=== PATIENT | male | born 1960 | race Caucasian/White ===

== ENCOUNTER 2020-02-24 12:28 | Inpatient (IN) ==
[2020-02-24] MEDS ORDERED: ZOFRAN INJ 4 MG VIAL IVP PRN (12:41)
[2020-02-24 12:56] VITALS: BMI 23.8
[2020-02-24] MEDS ORDERED: NS 1000 ML 1,000 ML ONE ×2 (12:58→14:27)
[2020-02-24] MEDS ORDERED: NS 1000 ML 1,000 ML IV SCH ×2 (13:00→16:00)
[2020-02-24 13:05] LABS: BASOPHILS % (AUTO) 0.2 % (0.2-1.0); HEMOGLOBIN 13.5 g/dL (13.5-18.0); LYMPHOCYTES # (AUTO) 0.3 X10^3/uL (1.3-2.9); LYMPHOCYTES % (AUTO) 2.5 % (21.0-51.0); MEAN CORPUSCULAR HEMOGLOBIN 30.9 pg (27.0-34.0); MEAN CORPUSCULAR HGB CONC 33.6 g/dL (33.0-35.0); MEAN PLATELET VOLUME 9.3 fL (7.4-11.0); MONOCYTES # (AUTO) 0.7 x10^3/uL (0.3-0.8); MONOCYTES % (AUTO) 5.4 % (0.0-13.0); NEUTROPHILS # (AUTO) 11.1 x10^3/uL (2.2-4.8); NEUTROPHILS % (AUTO) 91.9 % (42.0-75.0); PLATELET COUNT 179 X10^3/uL (150.0-450.0); RED BLOOD COUNT 4.35 X10^6/uL (4.7-6.0); RED CELL DISTRIBUTION WIDTH 13.8 % (11.6-16.5); WHITE BLOOD COUNT 12.1 X10^3/uL (3.6-10.0)
[2020-02-24 13:07] LABS: ABG BASE EXCESS -5.6 mmol/L (-2.0-2.0)
[2020-02-24] MEDS ORDERED: NS 1000 ML 1,000 ML IV ONE (13:10)
--- NOTE | 2020-02-24 13:12 | DR.DIZZY ---
HPI Time seen Time Seen by Provider: 02/24/20 12:40 Context Stroke Symptoms: None PMH PMH Past Medical History: Hypertension Past Surgical History: Yes Surgical History: Abdominal Surgery, Ortho Surgery and Other Family History Family Medical History: Cancer and Hypertension Social History Do you use any recreational Drugs:: No PE Vital Signs Vitals: Temperature 99.8 F Pulse Rate 123 Respiratory Rate 47 Blood Pressure [Right Arm] 156/79 Blood Pressure 104/63 O2 Sat by Pulse Oximetry 89 ROR Labs Reviewed Result Diagrams: 02/24/20 12:46 02/24/20 12:46 Laboratory: WBC 12.1 X10^3/uL (3.6-10.0) H 02/24/20 12:46 RBC 4.35 X10^6/uL (4.7-6.0) L 02/24/20 12:46 Hgb 13.5 g/dL (13.5-18.0) 02/24/20 12:46 Hct 40.0 % (42.0-54.0) L 02/24/20 12:46 MCV 92.0 fL (80.0-100.0) 02/24/20 12:46 MCH 30.9 pg (27.0-34.0) 02/24/20 12:46 MCHC 33.6 g/dL (33.0-35.0) 02/24/20 12:46 RDW 13.8 % (11.6-16.5) 02/24/20 12:46 Plt Count 179 X10^3/uL (150.0-450.0) 02/24/20 12:46 Plt Count Comment Adequate (ADEQUATE) 02/24/20 12:46 MPV 9.3 fL (7.4-11.0) 02/24/20 12:46 Neut % (Auto) 91.9 % (42.0-75.0) H 02/24/20 12:46 Lymph % (Auto) 2.5 % (21.0-51.0) L 02/24/20 12:46 Ashley % (Auto) 5.4 % (0.0-13.0) 02/24/20 12:46 Eos % (Auto) 0.0 % (0.9-2.9) L 02/24/20 12:46 Baso % (Auto) 0.2 % (0.2-1.0) 02/24/20 12:46 Neut # (Auto) 11.1 x10^3/uL (2.2-4.8) H 02/24/20 12:46 Lymph # (Auto) 0.3 X10^3/uL (1.3-2.9) L 02/24/20 12:46 Ashley # (Auto) 0.7 x10^3/uL (0.3-0.8) 02/24/20 12:46 Eos # (Auto) 0.0 x10^3/uL (0.0-0.2) 02/24/20 12:46 Baso # (Auto) 0.0 X10^3/uL (0.0-0.1) 02/24/20 12:46 Absolute Nucleated RBC 0.0 /100WBC 02/24/20 12:46 Total Counted 100 02/24/20 12:46 Neutrophils % (Manual) 37 % (39-76) L 02/24/20 12:46 Band Neutrophils % 39 % (0-10) H 02/24/20 12:46 Lymphocytes % (Manual) 7 % (13-43) L 02/24/20 12:46 Monocytes % (Manual) 10 % (4-9) H 02/24/20 12:46 Metamyelocytes % 7 02/24/20 12:46 Plt Morphology Comment Normal (NORMAL) 02/24/20 12:46 RBC Morphology Normal (NORMAL) 02/24/20 12:46 D-Dimer 13.80 ug/ml (0.0-0.57) H* 02/24/20 12:46 Sample Site Rbra 02/24/20 12:58 ABG pH 7.440 (7.35-7.45) 02/24/20 12:58 ABG pCO2 25.0 mmHg (35.0-45.0) L 02/24/20 12:58 ABG pO2 59.0 mmHg (80.0-100.0) L 02/24/20 12:58 ABG HCO3 17.0 mmol/L (22-26) L* 02/24/20 12:58 ABG O2 Saturation 91.0 % (90-100) 02/24/20 12:58 ABG Base Excess -5.6 mmol/L (-2.0-2.0) L 02/24/20 12:58 Iain Test N/a 02/24/20 12:58 A-a Gradient 59.0 mmHg 02/24/20 12:58 FiO2 21.0 02/24/20 12:58 Blood Gas Comments Pt miranda well elj 02/24/20 12:58 Sodium 126 mmol/L (136-145) L 02/24/20 12:46 Corrected Sodium 127 mmol/L (136-145) L 02/24/20 12:46 Potassium 3.9 mmol/L (3.5-5.1) 02/24/20 12:46 Chloride 91 mmol/L (98-107) L 02/24/20 12:46 Carbon Dioxide 21.6 mmol/L (21-32) 02/24/20 12:46 BUN 33 mg/dL (7-18) H 02/24/20 12:46 Creatinine 3.50 mg/dL (0.70-1.30) H 02/24/20 12:46 Est GFR (MDRD) Af Amer 23 (>60) L 02/24/20 12:46 Est GFR (MDRD) Non-Af 19 (>60) L 02/24/20 12:46 Glucose 134 mg/dL (65-99) H 02/24/20 12:46 Lactic Acid 6.0 mmol/L (0.4-2.0) H 02/24/20 12:46 Calcium 8.3 mg/dL (8.5-10.1) L 02/24/20 12:46 Corrected Calcium 9.4 mg/dL (8.5-10.1) 02/24/20 12:46 Ferritin 547 ng/mL (26-388) H 02/24/20 12:46 Total Bilirubin 1.80 mg/dL (0.2-1.0) H 02/24/20 12:46 AST 43 Units/L (15-37) H 02/24/20 12:46 ALT 54 Units/L (12-78) 02/24/20 12:46 Alkaline Phosphatase 74 Units/L (46-116) 02/24/20 12:46 Troponin I < 0.02 ng/mL (0-1.5) 02/24/20 12:46 C-Reactive Protein 302.50 mg/L (0-3.0) H 02/24/20 12:46 Total Protein 7.4 g/dL (6.4-8.2) 02/24/20 12:46 Albumin 2.6 g/dL (3.4-5.0) L 02/24/20 12:46 Globulin 4.8 g/dL (2.5-4.5) H 02/24/20 12:46 Albumin/Globulin Ratio 0.5 Ratio (1.1-2.1) L 02/24/20 12:46 Lipase 37 Units/L (73-393) L 02/24/20 12:46 SARS-CoV-2 (PCR) Negative (NEGATIVE) 02/24/20 14:51 XRAY XRAY Interpreted by: Radiologist X-ray Results: chest: multifocal infiltrates, Large stool in colon CT abdo/pelvis: ground glass opacities in lung, Left kidney 6.5cm lesion EKG Rate: 126 [place]: Normal Rhythm: ST Block: None Hypertrophy: LVH ST: Normal Opioid Opioid Risk Tool Age (Jong box if 16-45): No History of Preadolescent Sexual Abuse: No Total: 0 Total Score Risk Category: Low Risk Copyright: Curtis DONALDSON predicting aberrant behaviors Diagnosis Discharge Problem: Other viral pneumonia, Kidney lesion, [place], left
[2020-02-24 13:20] LABS: ALANINE AMINOTRANSFERASE 54 Units/L (12-78); ALBUMIN 2.6 g/dL (3.4-5.0); ALKALINE PHOSPHATASE 74 Units/L (46-116); ASPARTATE AMINO TRANSFERASE 43 Units/L (15-37); BLOOD UREA NITROGEN 33 mg/dL (7-18); CALCIUM 8.3 mg/dL (8.5-10.1); CARBON DIOXIDE 21.6 mmol/L (21-32); CHLORIDE 91 mmol/L (98-107); COR CA(FOR HYPOALB) 9.4 mg/dL (8.5-10.1); COR NA(FOR HYPERGLY) 127 mmol/L (136-145); LIPASE 37 Units/L (73-393); SODIUM 126 mmol/L (136-145); TOTAL PROTEIN 7.4 g/dL (6.4-8.2); TROPONIN I < 0.02 ng/mL (0-1.5); eGFR NON BLACK RACES 19 (>60)
--- NOTE | 2020-02-24 13:26 | RAD ---
HISTORYPT C/O ABDOMINAL PAIN PSH: ABD, ORTHO, HERNIA X2 PMH: HTNSTUDYACUTE ABDOMEN SERIESCOMPARISONFINDINGSThe trachea is midline. The cardiac silhouette is [unremarkable]. [The lungs demonstrate multifocal interstitial infiltrate of uncertain etiology but is concerning for pneumonia. The right costophrenic angle is not included in the film and cannot be evaluated.. There is no effusion or pneumothorax.] [The bony thorax is unremarkable].Flat plate and upright evaluation of the abdomen demonstrates a nonobstructive bowel gas pattern]. There is a large amount of stool in the colon. There is no pneumoperitoneum. No pathological soft tissue mass or calcification can be observed. The bony structures are grossly intact.IMPRESSION1. [Multifocal infiltrates as above concerning for underlying pneumonia. Continued follow-up is recommended2. [No evidence for acute abdominal pathology identified.] There is a large amount of stool in the colon.Electronically signed by: SANJEEV DOMINIQUE (Feb 24, 2020 13:24:29)
[2020-02-24 14:11] LABS: BAND NEUTROPHILS % 39 % (0-10); METAMYELOCYTES % 7; PLATELET MORPHOLOGY COMMENT NORMAL (NORMAL)
[2020-02-24] MEDS ORDERED: MOTRIN TAB 800 MG PO ONE ×2 (14:28)
[2020-02-24] MEDS: NS 1000 ML 1,000 ML IV SCH ×2 (14:31→22:06)
[2020-02-24] MEDS ORDERED: XOPENEX 1.25 MG/3 ML NEBULE NEB ONE ×2 (14:45→15:44)
--- NOTE | 2020-02-24 14:46 | VAS ---
Ultrasound ultrasound left upper extremity venous DopplerIndication: Left shoulder pain. Evaluate for thrombosisTECHNIQUEDynamic grayscale and color Doppler imaging with spectral analysis and compression techniques to the left upper extremity veinsFINDINGSThe left radial vein is patent and compressible with normal respiratory phasicity. Brachial vein appears normal, with patent and compressible throughout its length. Left subclavian vein shows normal color and spectral Doppler flow. Left jugular vein not convincingly demonstrated. The ulnar vein cannot be seen. Axillary vein cannot be seen.IMPRESSION1. Limited study due to nonvisualization of the left jugular vein, axillary vein and ulnar vein.2. The visualized brachial venous system and radial vein as well subclavian vein appear normal with normal respiratory phasicity and compressibility, where applicable.Electronically signed by: MANDA DUNCAN (Feb 24, 2020 14:44:42)
[2020-02-24] MEDS ORDERED: ROCEPHIN VIAL 1 GRAM 1 G in NS 100 ML IV + SPIKE MINIBAG* 100 ML IV ONE (15:35)
[2020-02-24] MEDS ORDERED: ROCEPHIN 1 GRAM IV PREMIX 1 G/50 ML IV.SOLN. IV ONE (15:37)
[2020-02-24] MEDS ORDERED: REMDESIVIR 200 MG in NS 250 ML IV 250 ML IV NR (16:00)
[2020-02-24] MEDS ORDERED: VITAMIN D (1.25MG) PO SCH (16:00)
[2020-02-24] MEDS ORDERED: DECADRON TAB PO SCH (16:00)
[2020-02-24] MEDS ORDERED: REMDESIVIR 100 MG in NS 250 ML IV 250 ML IV NR (17:00)
--- NOTE | 2020-02-24 17:08 | CT ---
HISTORYABDOMINAL PAINSTUDYABDOMEN/PELVIS W/O CONCOMPARISONNoneTECHNIQUEMultiple axial images of the abdomen and pelvis were obtained from the lung bases to the pubic symphysis without the administration of IV contrast. Dose reduction techniques including Automated Exposure Control (AEC) and adjustment of mA and kV were utilized.FINDINGSThe visualized portions of the lung bases demonstrate tiny effusions with multiple nodular ground-glass opacities throughout the lungs which may be infectious or inflammatory nature however close follow-up be recommended to ensure these resolve is certainly a malignant process could give this appearance... The left kidney liver demonstrates a large hyperdense lesion which measures 6.5 cm with Hounsfield units of 45. While this could represent a proteinaceous cyst certainly a solid lesion cannot be excluded and a dedicated contrast study will be needed for more adequate assessment. The solid organs otherwise unremarkable in their noncontrast appearance. The gallbladder is unremarkable in its CT appearance . No significant mesenteric lymphadenopathy or stranding can be observed. No free fluid or free air is seen within the abdomen. No bowel wall thickening or bowel dilatation is present. The colon i demonstrates some mild sigmoid diverticulosis without evidence for diverticulitis. The appendix is not seen but there are no secondary signs to suggest appendicitis.. The urinary bladder is grossly unremarkable. The bony structures demonstrate mild degenerative changes.IMPRESSIONIndeterminate 6.5 cm left renal lesion as above. Dedicated contrast study will be needed further characterization to exclude solid mass.Multiple nodular and ground-glass opacities throughout the lung bases with small effusions probably infectious or inflammatory nature however close follow-up be needed to ensure complete resolution and to exclude a malignant process..Electronically signed by: SANJEEV DOMINIQUE (Feb 24, 2020 17:06:53)
[2020-02-24 17:30] LABS: CREATINE KINASE 311 Units/L (39-308); CREATINE KINASE MB 3.1 ng/mL (0-4.0); TROPONIN I < 0.02 ng/mL (0-1.5)
[2020-02-24] MEDS ORDERED: MORPHINE SULFATE INJ 2 MG INJ IVP PRN (18:04)
[2020-02-24] MEDS ORDERED: NS 1/2 1000 ML IV 1,000 ML IV ONE ×2 (18:12→20:09)
[2020-02-24] MEDS: TRICOR TAB 160 MG PO SCH (18:17)
[2020-02-24] MEDS: VSL#3 PO SCH (18:17)
[2020-02-24] MEDS: NS 1/2 1000 ML IV 1,000 ML IV SCH (18:17)
[2020-02-24] MEDS ORDERED: ACTEMRA 400 MG in NS 100 ML IV 80 ML IV SCH (18:19)
[2020-02-24] MEDS: DUONEB 0.5 MG/3 MG (3 mL) NEB SCH ×2 (18:21→21:29)
[2020-02-24] MEDS: PULMICORT NEB TX 0.5 MG NEB SCH ×2 (18:21→21:30)
[2020-02-24] MEDS ORDERED: NS 100 ML IV + SPIKE MINIBAG* 100 ML IV ONE (20:09)
[2020-02-24] MEDS ORDERED: ZOSYN VIAL 2.25 GRAMS IV ONE (20:10)
[2020-02-24] MEDS: SOLU-Medrol 40 MG VIAL IVP SCH ×2 (20:19→22:02)
[2020-02-24] MEDS: ASCORBIC ACID INJ MULTI-DOSE VIAL 1,500 MG in NS 100 ML IV 100 ML IV SCH (20:21)
[2020-02-24] MEDS: CIPRO IV 200 MG PREMIX* 200 MG/100 ML BAG IV SCH (20:21)
[2020-02-24] MEDS: ZINC SULFATE PO SCH (20:21)
[2020-02-24] MEDS: LOVENOX INJ 30 MG SYR SC SCH (20:23)
[2020-02-24] MEDS ORDERED: ZyrTEC TAB 10 MG ONE (20:30)
[2020-02-24] MEDS ORDERED: NORCO 5/325 MG TAB PO PRN (20:53)
[2020-02-24] MEDS ORDERED: PLAQUENIL PO SCH (21:00)
[2020-02-24] MEDS ORDERED: ZyrTEC TAB 10 MG PO SCH (21:00)
[2020-02-24] MEDS ORDERED: NORCO 5/325 MG TAB ONE (21:14)
[2020-02-24] MEDS: ZOSYN VIAL 2.25 GRAMS 2.25 G in NS 100 ML IV + SPIKE MINIBAG* 100 ML IV SCH (22:02)
[2020-02-24 22:40] LABS: CREATINE KINASE 410 Units/L (39-308); TROPONIN I < 0.02 ng/mL (0-1.5)
[2020-02-25 02:33] LABS: CKMB % 2.4 % (<4); CREATINE KINASE 379 Units/L (39-308); TROPONIN I < 0.02 ng/mL (0-1.5)
[2020-02-25] MEDS: ASCORBIC ACID INJ MULTI-DOSE VIAL 1,500 MG in NS 100 ML IV 100 ML IV SCH (03:49)
[2020-02-25 04:25] LABS: BASOPHILS # (AUTO) 0.1 X10^3/uL (0.0-0.1); EOSINOPHILS # (AUTO) 0.3 x10^3/uL (0.0-0.2); EOSINOPHILS % (AUTO) 4.5 % (0.9-2.9); HEMATOCRIT 42.3 % (42.0-54.0); HEMOGLOBIN 14.1 g/dL (13.5-18.0); LYMPHOCYTES # (AUTO) 0.2 X10^3/uL (1.3-2.9); LYMPHOCYTES % (AUTO) 2.7 % (21.0-51.0); MEAN CORPUSCULAR HGB CONC 33.4 g/dL (33.0-35.0); MEAN CORPUSCULAR VOLUME 92.7 fL (80.0-100.0); MEAN PLATELET VOLUME 9.2 fL (7.4-11.0); MONOCYTES # (AUTO) 0.1 x10^3/uL (0.3-0.8); MONOCYTES % (AUTO) 2.4 % (0.0-13.0); NEUTROPHILS # (AUTO) 5.4 x10^3/uL (2.2-4.8); NEUTROPHILS % (AUTO) 89.4 % (42.0-75.0); PLATELET COUNT 143 X10^3/uL (150.0-450.0); RED BLOOD COUNT 4.57 X10^6/uL (4.7-6.0)
[2020-02-25 04:31] LABS: ALBUMIN 2.3 g/dL (3.4-5.0); CALCIUM 7.6 mg/dL (8.5-10.1); CARBON DIOXIDE 18.1 mmol/L (21-32); CREATININE 4.51 mg/dL (0.70-1.30); TOTAL PROTEIN 6.9 g/dL (6.4-8.2)
[2020-02-25 04:37] LABS: LACTIC ACID 4.7 mmol/L (0.4-2.0)
[2020-02-25 05:03] LABS: BAND NEUTROPHILS % 30 % (0-10); METAMYELOCYTES % 4; PLATELET MORPHOLOGY COMMENT NORMAL (NORMAL)
[2020-02-25 05:44] LABS: ABG ALLEN TEST POS; ABG BASE EXCESS -11.6 mmol/L (-2.0-2.0); ABG HCO3 13.3 mmol/L (22-26)
[2020-02-25] MEDS: NS 1/2 1000 ML IV 1,000 ML IV SCH (05:51)
[2020-02-25] MEDS: ZOSYN VIAL 2.25 GRAMS 2.25 G in NS 100 ML IV + SPIKE MINIBAG* 100 ML IV SCH ×4 (05:51→18:13)
[2020-02-25] MEDS: SOLU-Medrol 40 MG VIAL IVP SCH ×3 (05:52→18:12)
--- NOTE | 2020-02-25 06:05 | RAD ---
HISTORYShortness of breath, hernia tear, hypertensionSTUDYCHEST, 1 VIEWCOMPARISONNoneTECHNIQUEAP view of the chestFINDINGSCardiac silhouette and mediastinal contours appear normal. Multifocal bilateral airspace disease and scattered bilateral interstitial opacities. Blunted costophrenic sulci. No pneumothorax.IMPRESSIONMultifocal airspace disease and scattered interstitial opacities are nonspecific. In the acute setting this can be seen with multifocal pneumonia. Recommend follow-up to document resolution.Electronically signed by: Remi Dacosta (Feb 25, 2020 06:04:03)
[2020-02-25] MEDS: NS 1000 ML 1,000 ML IV SCH (06:33)
[2020-02-25] MEDS: TRICOR TAB 160 MG PO SCH (08:27)
[2020-02-25] MEDS: CIPRO IV 200 MG PREMIX* 200 MG/100 ML BAG IV SCH ×2 (08:27→21:01)
[2020-02-25] MEDS: VSL#3 PO SCH (08:28)
[2020-02-25] MEDS: ZINC SULFATE PO SCH ×2 (08:28→21:17)
[2020-02-25] MEDS: LOVENOX INJ 30 MG SYR SC SCH (08:29)
[2020-02-25] MEDS ORDERED: REMDESIVIR 100 MG in NS 250 ML IV 250 ML IV SCH (09:00)
[2020-02-25] MEDS ORDERED: VITAMIN A PO SCH (09:00)
[2020-02-25] MEDS ORDERED: VITAMIN B COMPLEX PO SCH (09:00)
[2020-02-25] MEDS: DUONEB 0.5 MG/3 MG (3 mL) NEB SCH ×2 (09:10→12:10)
[2020-02-25] MEDS: PULMICORT NEB TX 0.5 MG NEB SCH (09:10)
[2020-02-25] MEDS ORDERED: LOVENOX INJ 60 MG SYR SC ONE (09:54)
[2020-02-25] MEDS ORDERED: NS 1000 ML 1,000 ML IV ONE (09:58)
[2020-02-25] MEDS ORDERED: ACTEMRA 400 MG in NS 100 ML IV 80 ML IV NR (12:15)
[2020-02-25] MEDS ORDERED: NS 100 ML IV 100 ML IV ONE (12:51)
[2020-02-25] MEDS ORDERED: CARDIZEM INJ 125 MG VIAL ONE (12:52)
[2020-02-25 12:57] LABS: BILIRUBIN,URINE NEGATIVE (NEGATIVE); BLOOD/HEMOGLOBIN,URINE 5+ (NEGATIVE); GLUCOSE, URINE NEGATIVE (NEGATIVE); KETONES,URINE NEGATIVE (NEGATIVE); LEUKOCYTE ESTERASE ,URINE NEGATIVE (NEGATIVE); NITRITES,URINE NEGATIVE (NEGATIVE); PROTEIN,URINE 2+ (NEGATIVE); UROBILINOGEN,URINE NORMAL (NORMAL)
[2020-02-25] MEDS ORDERED: VANCOMYCIN HCL VIAL 1.25 G 1.25 G in D5W 250 ML IV 250 ML IV NR (13:00)
[2020-02-25] MEDS ORDERED: PHARMACY CONSULT - VANCOMYCIN XX SCH (13:00)
[2020-02-25] MEDS: CARDIZEM INJ 125 MG VIAL 125 MG in NS 100 ML IV 100 ML IV PRN ×2 (13:07→19:55)
[2020-02-25] MEDS: NS 1000 ML 1,000 ML with SODIUM BICARBONATE 8.4% INJ ADULT 50 ML IV SCH ×4 (13:10→18:13)
[2020-02-25 13:14] LABS: APPEARANCE,URINE CLEAR (CLEAR); COLOR,URINE YELLOW (YELLOW)
[2020-02-25 13:18] LABS: AMORPHOUS SEDIMENT,UR 2+ /HPF (NEGATIVE); BACTERIA,URINE TRACE /HPF (NEGATIVE); SQUAMOUS EPITHELIAL CELL,UR RARE /HPF (NEGATIVE)
[2020-02-25] MEDS ORDERED: LANOXIN INJ IVP ONE (13:27)
[2020-02-25] MEDS ORDERED: LANOXIN INJ ONE (13:29)
--- NOTE | 2020-02-25 13:48 | CT ---
HISTORYCHEST PAIN, SOB, VIRAL PNEUMONIASTUDYCHEST W/O CONCOMPARISONCT chest dated 12/10/2018TECHNIQUE: Axial images through the chest were performed without intravenous contrast. CT scan was performed following ALARA (As low as Reasonably Achievable).Coronal and Sagittal reformatted images were performed.FINDINGSThe thyroid gland is no significant enlarged. There is trace bilateral pleural effusions right more than left. There is no pericardial effusion. There is a pretracheal lymph node measuring approximately 0.8 centimeters in short axis. There is sub carinal adenopathy measuring 2 centimeters in short axes increase since prior study with an unchanged area of calcification. there is no adrenal masses. There are sutures in the stomach. There is a large left renal cyst measuring 6.4 centimeters there is also an upper pole right renal cyst. No gallstones. There is and small hiatal herniaLung windows there are multiple irregular lung nodules with confluent areas in the lower lobes and in the right middle lobe involving diffusely the lungs. There are some nodularity with ground-glass radiopacities in the upper lobe. There is also areas of air bronchogram in the left upper lobe nodules. There is arthritic changes of the right shoulder.IMPRESSIONBilateral multiple irregular nodular areas with confluent zones involving the diffusely lungs more severe in the periphery with a trace pleural effusions consider fungal or viral pneumonia, follow-up is recommended.Mild pretracheal adenopathyElectronically signed by: Tressa Beasley (Feb 25, 2020 13:47:18)
[2020-02-25] MEDS ORDERED: HEPARIN SODIUM INJ 5000 UNITS SC SCH (14:00)
--- NOTE | 2020-02-25 14:01 | DR.H&P ---
H&P - History & Physical for Day of: H&P Date: 02/24/20 - Chief Complaint Chief Complaint: FEVER, FATIGUE, COUGH, SOB, CONGESTION, ABDOMINAL PAIN, LEFT SHOULDER PAIN - History of Present Illness History of Present Illness: IS A 59 YEAR OLD PATIENT OF OURS. HE PRESENTED TO THE HOSPITAL WITH COMPLAINTS OF FEVER, FATIGUE, SHORTNESS OF BREATH, PRODUCTIVE COUGH, CHEST CONGESTION, ABDOMINAL PAIN, AND LEFT SHOULDER PAIN AND SWELLING. SHOULDER PAIN AND SWELLING BEGAN ON 02/18/20. THERE IS NO KNOWN INJURY TO SHOULDER. OTHER SYMPTOMS STARTED ON 02/23/20. HE HAS BEEN TESTED MULTIPLE TIMES FOR COVID OVER THE PAST WEEK. ALL WERE NEGATIVE, INCLUDING RAPID COVID-19 THAT WAS OBTAINED PRIOR TO ADMISSION. FEVER HAS REACHED HIGH 103.0. HE HAS TAKEN TYLENOL AT HOME. ON ARRIVAL TO THE ER, VITALS WERE 97.8-127-47-88%RA-90/55. OXYGEN WAS APPLIED AND SATURATIONS INCREASED TO 93%. LABS WERE OBTAINED. ABNORMAL LAB VALUES INCLUDE THE FOLLOWING: WBC 12.1, RBC 4.35, HCT 40.0, D-DIMER 13.80, INR 1.44, SODIUM 126, CHLORIDE 91, BUN 33, CREATININE 3.50, GLUCOSE 134, LACTIC ACID 6.0, CALCIUM 8.3, FERRITIN 547, TOTAL BILI 1.80, AST 43, CRP 302.50, ALBUMIN 2.6, GLOBULIN 4.8, LIPASE 37, CREATINE KINASE 311, BNP 181. A URINALYSIS WAS OBTAINED AND REVEALED: WBC 0-2, RBC 3-5, LEUKOCYTES NEGATIVE, BACTERIA TRACE, OCCULT BLOOD 5+. COVID-19 NEGATIVE. COVID- 19 SEND OUT TEST COLLECTED. BLOOD CULTURES WERE SET UP. AN ABDOMINAL SERIES WAS OBTAINED AND REVEALED: 1. Multifocal infiltrates as above concerning for underlying pneumonia. Continued follow-up is recommended 2. No evidence for acute abdominal pathology identified. There is a large amount of stool in the colon. EKG REVEALED SINUS TACHYCARDIA WITH HR 126. ABDOMEN/PELVIS CT WITHOUT CONTRAST OBTAINED AND REVEALED: Indeterminate 6.5 cm left renal lesion. Dedicated contrast study will be needed further characterization to exclude solid mass. Multiple nodular and ground-glass opacities throughout the lung bases with small effusions probably infectious or inflammatory nature however close follow-up be needed to ensure complete resolution and to exclude a malignant process. A LEFT UPPER EXTREMITY VENOUS DOPPLER WAS OBTAINED AND REVEALED: 1. Limited study due to nonvisualization of the left jugular vein, axillary vein and ulnar vein. 2. The visualized brachial venous system and radial vein as well subclavian vein appear normal with normal respiratory phasicity and compressibility, where applicable. AN ECHO WAS OBTAINED AND REVEALED AN EJECTION FRACTION OF 55%, MILD TO MODERATE PULMONARY HYPERTENSION, IVC ID DILATED WITH POOR INSPIRATION COLLAPSE CONSISTENT WITH ELEVATED RIGHT A TRIAL PRESSURE. - Past Medical History Past Medical History: Hypertension - Past Surgical History Surgical History: Abdominal Surgery, Ortho Surgery, Other - Family History Family Medical History: Cancer, Hypertension - Social History Does patient currently use any type of tobacco product: No Have you used tobacco products in the last 12 months: Yes (chewing tabacco) Type of Tobacco Use: Smokeless Does any household member use tobacco: No Alcohol Use: None Drug Use: None - Medications Home Medications: No Known Drug Allergies Allergy (Verified 08/22/19 17:19) CONTINUE taking the following medications cetirizine [Zyrtec] 10 mg PO HS 02/24/20 [History] hawthorn peterson 500 mg PO DAILY 02/24/20 [History] vitamin B complex [B-Complex] 1 tab PO DAILY 02/24/20 [History] - Review of Systems Constitutional: Fever, Chills, Weakness Eyes: No Symptoms Reported ENT: No Symptoms Reported Respiratory: See HPI, Cough, Shortness of Breath Cardiovascular: No Symptoms Reported Gastrointestinal: Abdominal Pain Genitourinary: No Symptoms Reported Musculoskeletal: See HPI, Shoulder Pain Skin: No Symptoms Reported Neurological: Weakness - Physical Exam Vital Signs: Temperature 98.1 F Pulse Rate [Apical] 102 Pulse Rate 103 Respiratory Rate 32 Blood Pressure [Right Arm] 111/73 Blood Pressure 106/73 O2 Sat by Pulse Oximetry 92 Oriented: Normal Eyes: Normal Ear: Normal Nose: Normal Throat: Normal Respiratory: Rhonchi Throughout Cardiovascular: Tachycardia : Normal Auscultation: Bowel Sounds: Normal Palpation: Normal Tenderness: Diffuse, Moderate Skin: Decreased Turgur Musculoskeletal: Left, Shoulder, Swelling, Tender Psychiatric: Normal Mood Description: Calm Affect: Normal Speech Pattern: Clear - Allergies Allergies/Adverse Reactions: Allergies Allergy/AdvReac Type Severity Reaction Status Date / Time No Known Drug Allergies Allergy Verified 08/22/19 17:19
[2020-02-25 14:15] LABS: CKMB % 3.4 % (<4); TROPONIN I 0.05 ng/mL (0-1.5)
[2020-02-25 14:20] LABS: CREATINE KINASE MB 11.4 ng/mL (0-4.0)
[2020-02-25] MEDS ORDERED: LOPRESSOR INJ 5 MG AMP ONE (14:43)
[2020-02-25] MEDS ORDERED: NEXTERONE IV 360 MG PREMIX* 360 MG/200 ML BAG IV PRN ×2 (14:47→21:00)
--- NOTE | 2020-02-25 14:47 | VAS ---
Ultrasound left upper extremity venous DopplerIndication: Left arm swellingTECHNIQUEDynamic grayscale, color spectral Doppler imaging through the left upper extremity veins with compression techniques and spectral [email or web address] jugular vein is patent with normal respiratory phasicity. Left subclavian vein is patent. There is echogenic thrombus in the left axillary vein compatible with acute DVT. There is swelling at the forearm and elbow subcutaneous soft tissues. The basilic, brachial veins and cephalic veins are patent. Radial vein is patent. Ulnar vein not well seen.IMPRESSIONOcclusive deep vein thrombus in the left axillary vein, acute appearing.Electronically signed by: MANDA DUNCAN (Feb 25, 2020 14:45:26)
--- NOTE | 2020-02-25 14:56 | VAS ---
HISTORYEvaluate for possible carotid artery stenosisSTUDYCAROTID USCOMPARISONNoneTECHNIQUEMultiple michaud scale and color flow Doppler images of the right and left carotid arterial system were obtained. The vertebral arterial system was evaluated as well.FINDINGSMinimal degree of plaque is noted in both carotid systems.On the right, peak systolic velocities in centimeters/sec of the right internal and common carotid arteries measure 69 and 110 respectively. The greatest ICA/CCA ratio on the right is 0.71.On the left, peak systolic velocities in centimeters/sec of the left internal and common carotid arteries measure 50 and 90 respectively. The greatest ICA/CCA ratio on the left is 0.59.Antegrade flow is documented in patent vertebral arteries bilaterally.IMPRESSIONNo hemodynamically significant carotid stenosis seen on either side.Electronically signed by: MILAGROS ZIMMERMAN (Feb 25, 2020 14:54:32)
[2020-02-25] MEDS ORDERED: NEXTERONE IV 150 MG PREMIX* 150 MG/100 ML BAG IV ONE (15:00)
[2020-02-25] MEDS ORDERED: LOPRESSOR INJ 5 MG AMP IVP SCH (15:00)
[2020-02-25] MEDS ORDERED: HEPARIN SODIUM IN D5W 25,000 UNITS/500 ML BAG IV PRN (15:24)
[2020-02-25] MEDS ORDERED: HEPARIN SODIUM IN D5W 25,000 UNITS/500 ML BAG IV ONE (15:26)
[2020-02-25] MEDS ORDERED: HEPARIN SODIUM INJ 5000 UNITS ONE ×2 (15:27→22:23)
[2020-02-25] MEDS ORDERED: HEPARIN SODIUM INJ 5000 UNITS IVP ONE (15:31)
[2020-02-25 16:48] LABS: CKMB % 3.4 % (<4); TROPONIN I 0.04 ng/mL (0-1.5)
[2020-02-25 16:51] LABS: CREATINE KINASE MB 10.3 ng/mL (0-4.0)
[2020-02-25] MEDS ORDERED: XOPENEX 1.25 MG/3 ML NEBULE NEB SCH (17:00)
[2020-02-25 18:08] LABS: ABG BASE EXCESS -11.2 mmol/L (-2.0-2.0)
[2020-02-25 18:09] LABS: ABG HCO3 11.5 mmol/L (22-26)
[2020-02-25] MEDS ORDERED: MORPHINE SULFATE INJ 2 MG INJ IVP ONE (18:15)
[2020-02-25] MEDS ORDERED: MORPHINE SULFATE INJ 2 MG INJ IVP PRN (18:16)
[2020-02-25] MEDS ORDERED: MORPHINE SULFATE INJ 2 MG INJ ONE (18:20)
--- NOTE | 2020-02-25 19:04 | DR.CARTERS ---
Short Stay Summary - Admission Date Date of Admission: 02/25/20 - Admission Diagnoses (1) Multifocal pneumonia Status: Acute (2) DVT of axillary vein, acute Status: Acute (3) Acute renal failure (ARF) Status: Acute (4) Atrial fibrillation with rapid ventricular response Status: Acute (5) Acute pain of left shoulder Status: Acute (6) Hypotension Status: Acute - Hospital Course Hospital Course: IS A 59 YEAR OLD PATIENT OF OURS. HE PRESENTED TO THE HOSPITAL WITH COMPLAINTS OF FEVER, FATIGUE, SHORTNESS OF BREATH, PRODUCTIVE COUGH, CHEST CONGESTION, ABDOMINAL PAIN, AND LEFT SHOULDER PAIN AND SWELLING. SHOULDER PAIN AND SWELLING BEGAN ON 02/18/20. THERE IS NO KNOWN INJURY TO SHOULDER. OTHER SYMPTOMS STARTED ON 02/23/20. HE HAS BEEN TESTED MULTIPLE TIMES FOR COVID OVER THE PAST WEEK. ALL WERE NEGATIVE, INCLUDING RAPID COVID-19 THAT WAS OBTAINED PRIOR TO ADMISSION. FEVER HAS REACHED HIGH 103.0. HE HAS TAKEN TYLENOL AT HOME. ON ARRIVAL TO THE ER, VITALS WERE 97.8-127-47-88%RA-90/55. OXYGEN WAS APPLIED AND SATURATIONS INCREASED TO 93%. LABS WERE OBTAINED. ABNORMAL LAB VALUES INCLUDE THE FOLLOWING: WBC 12.1, RBC 4.35, HCT 40.0, D-DIMER 13.80, INR 1.44, SODIUM 126, CHLORIDE 91, BUN 33, CREATININE 3.50, GLUCOSE 134, LACTIC ACID 6.0, CALCIUM 8.3, FERRITIN 547, TOTAL BILI 1.80, AST 43, CRP 302.50, ALBUMIN 2.6, GLOBULIN 4.8, LIPASE 37, CREATINE KINASE 311, BNP 181. A URINALYSIS WAS OBTAINED AND REVEALED: WBC 0-2, RBC 3-5, LEUKOCYTES NEGATIVE, BACTERIA TRACE, OCCULT BLOOD 5+. COVID-19 NEGATIVE. COVID-19 SEND OUT TEST COLLECTED. BLOOD CULTURES WERE SET UP. AN ABDOMINAL SERIES WAS OBTAINED AND REVEALED: 1. Multifocal infiltrates as above concerning for underlying pneumonia. Continued follow-up is recommended 2. No evidence for acute abdominal pathology identified. There is a large amount of stool in the colon. EKG REVEALED SINUS TACHYCARDIA WITH HR 126. ABDOMEN/PELVIS CT WITHOUT CONTRAST OBTAINED AND REVEALED: Indeterminate 6.5 cm left renal lesion. Dedicated contrast study will be needed further characterization to exclude solid mass. Multiple nodular and ground-glass opacities throughout the lung bases with small effusions probably infectious or inflammatory nature however close follow-up be needed to ensure complete resolution and to exclude a malignant process. A LEFT UPPER EXTREMITY VENOUS DOPPLER WAS OBTAINED AND REVEALED: 1. Limited study due to nonvisualization of the left jugular vein, axillary vein and ulnar vein.2. The visualized brachial venous system and radial vein as well subclavian vein appear normal with normal respiratory phasicity and compressibility, where applicable. PATIENT WAS ADMITTED TO THE HOSPTIAL FOR FURTHER EVALUATION AND TREATMENT OF MULTIFOCAL PNEUMONIA, ACUTE RENAL FAILURE, DYSPNEA, ELEVATED D-DIMER, AND LEFT SHOULDER PAIN AND SWELLING. HE WAS STARTED ON NS AT 125ML/HR, CIPRO 200MG IV Q12H, ZOSYN 2.25G IV TID, MORPHINE 1-2MG IV Q2H PRN, SOLU-MEDROL 80MG IV Q8H, REMDESIVIR 100MG IV DAILY, DUONEBS QID, PULMICORT NEBS BID. WE PLANNED TO OBTAIN SERIAL CARDIAC ENZYMES, EKGS, AN ECHO, AND REPEAT MORNING LABS AND CHEST. ON MORNING ROUNDS, PATIENT CONTINUED WITH SHORTNESS OF BREATH, WEAKNESS, AND LEFT SHOULDER PAIN AND SWELLING. HE WAS HYPOTENSIVE THROUGHOUT THE NIGHT. HIS VITALS ON MORNING ROUNDS WERE 98.0-91-37-91%NC-107/69. LABS WERE OBTAINED. ABNORMAL LAB VALUES INCLUDE THE FOLLOWING: RBC 4.57, SODIUM 129, CHLORIDE 94, CARBON DIOXIDE 18.1, BUN 46, CREATININE 4.51, GLUCOSE 112, LACTIC ACID 4.7, CALCIUM 7.6, FERRITIN 912, TOTAL BILI 1.80, AST 49, CRP 350.10, BNP 519, ALBUMIN 2.3, GLOBULIN 4.6, CREATINE KINASE 379. ABG REPEATED AND REVEALED: PH 7.300, PC02 27, P0 74, HC03 13.3, 02 SAT 93, BASE EXCESS -11.6, FI02 40. A CHEST XRAY WAS REPEATED AND REVEALED: Multifocal airspace disease and scattered interstitial opacities are nonspecific. In the acute setting this can be seen with multifocal pneumonia. WE REPEATED THE STUDY DUE TO NONVISUALIZATION OF THE LEFT JUGULAR VEIN, AXILLARY VEIN, AND ULNAR VEIN. IT THEN REVEALED: Occlusive deep vein thrombus in the left axillary vein, acute appearing AN ECHO WAS OBTAINED AND REVEALED AN EJECTION FRACTION OF 55%, MILD TO MODERATE PULMONARY HYPERTENSION, IVC ID DILATED WITH POOR INSPIRATION COLLAPSE CONSISTENT WITH ELEVATED RIGHT ATRIAL PRESSURE. WE OBTAINED A CAROTID ARTERY ULTRASOUND WHICH REVEALED: No hemodynamically significant carotid stenosis seen on either side. A CHEST CT WAS OBTAINED AND REVEALED: Bilateral multiple irregular nodular areas with confluent zones involving the diffusely lungs more severe in the periphery with a trace pleural effusions consider fungal or viral pneumonia, follow-up is recommended. Mild pretracheal adenopathy. AFTER RETURNING FROM CT, PATIENT COMPLAINED OF SEVERE SHORTNESS OF BREATH AND WAS NOTED WITH HR IN THE 180s. EKG REVEALED ATRIAL FIBRILLATION. PATIENT WAS STARTED ON A CARDIZEM DRIP, BUT REMAINED TACHYCARDIC DESPITE BEING MAXED OUT. HE WAS GIVEN DIGOXIN 125MCG IV X 1 DOSE. HE CONTINUED WITH HR IN THE 150s. HE WAS THEN STARTED ON AN AMIODARONE DRIP. HE WAS ALSO STARTED ON A HEPARIN DRIP DUE TO DVT. HE WAS GIVEN VANCOMYCIN 1.25G IV X 1 DOSE. WE BOLUSED PATIENT WITH ONE LITER OF IV FLUIDS AND WE ALSO ADDED 1 AMP BICARB IN EACH LITER OF MAINTENANCE FLUIDS. WE CONSULTED WITH CUSTOMER ASSISTANT AT [facility] IN [place], [place]. THEY ACCEPTED PATIENT FOR TRANSFER. - Discharge Medications Discharge Medications: Home Medication List cetirizine [Zyrtec] 10 mg PO HS 02/24/20 [History] hawthorn peterson 500 mg PO DAILY 02/24/20 [History] vitamin B complex [B-Complex] 1 tab PO DAILY 02/24/20 [History] Prescriptions: Risks, benefits, and alternatives of opioids discussed: Yes - Discharge Plan Disposition: 02 XFER [facility] Condition: Stable - Follow up/Referrals Follow up/Referrals: Dennis Osorio [Primary Care Provider] - 1 WEEK - Instructions
[2020-02-25 20:58] LABS: CKMB % 3.8 % (<4); TROPONIN I 0.05 ng/mL (0-1.5)
[2020-02-25] MEDS ORDERED: LOVENOX INJ 30 MG SYR SC SCH (21:00)
[2020-02-25 21:02] LABS: CREATINE KINASE MB 9.9 ng/mL (0-4.0)
[2020-02-25 22:48] VITALS: BP 110/73
[2020-02-26] MEDS ORDERED: VITAMIN A PO SCH (09:00)
[2020-02-26] MEDS ORDERED: LOVENOX INJ 30 MG SYR SC SCH (09:00)
[2020-02-26] MEDS ORDERED: VITAMIN D3 125 mcg (5,000 UNITS) PO SCH (09:00)
[2020-02-26] MEDS ORDERED: PHARMACY COMMENT IV NR (13:00)
== END 2020-02-25 23:00 | disposition short-term general hospital (02) | DRG 194 ==
LOC: ER 12:28 → ICU 15:57
PROVIDERS: ADMIT Internal Medicine; ATTEND Internal Medicine